=== PATIENT | male | born 1955 | race Caucasian/White ===

== ENCOUNTER 2024-01-27 06:30 | Day surgery (SDC) | payer BC ==
[~2024-01-27 06:30] MED LIST: Sodium Chloride 0.9% 10 ML Syringe FLUSH PRN; Sodium Chloride 0.9% 10 ML Syringe FLUSH SCH
[2024-01-27] MEDS: Lactated Ringers 1,000 ML IV SCH (06:50)
[2024-01-27] MEDS ORDERED: Propofol 200 MG/20 ML SDV ONE ×2 (07:19→08:34)
[2024-01-27] MEDS ORDERED: Midazolam 1 MG/ML 2 ML SDV ONE (07:19)
[2024-01-27] MEDS ORDERED: ceFAZolin 2 GM Vial ONE (07:20)
[2024-01-27] MEDS ORDERED: Ondansetron 4 MG/2 ML SDV ONE (07:20)
[2024-01-27] MEDS: Acetaminophen 325 MG Tab PO SCH (07:28)
[2024-01-27] MEDS: Pregabalin 25 MG Cap PO SCH (07:29)
[2024-01-27] MEDS: oxyCODONE ER 10 MG TAB.ER PO SCH (07:29)
[2024-01-27] MEDS ORDERED: Phenylephrine 1% 10 MG/ML SDV ONE (08:08)
[2024-01-27] MEDS ORDERED: Ketamine 200 MG/20 ML MDV ONE (08:14)
[2024-01-27] MEDS ORDERED: Ropivacaine 0.5% 5 MG/ML 30 ML SDV ONE (08:39)
[2024-01-27] MEDS ORDERED: dexmedeTOMIDine HCl 200 MCG/2 ML SDV ONE (08:39)
[2024-01-27] MEDS: Morphine 8 MG, EPINEPHrine 0.3 MG, Cefuroxime 750 MG, Ketorolac 30 MG, Sodium Chloride ... PRN (09:16)
[2024-01-27] MEDS: VANCOmycin 1 GM SDV ONE (09:21)
[2024-01-27] MEDS: Tranexamic Acid 1,000 MG/10 ML Vial ONE (09:21)
[2024-01-27] MEDS: oxyCODONE 5 MG Tab PO PRN (12:39)
== END 2024-01-27 12:50 | disposition home or self-care (01) ==
LOC: JD.SDS 06:30
PROVIDERS: ATTEND Orthopaedic Surgery
DX: M17.11 Unilateral primary osteoarthritis, right knee (principal)
CPT/HCPCS: 0055T; 27447; 64447; 73560; 97116; 97161; A9270; C1776; J0171; J0690; J0697; J1885; J2250; J2272; J2371; J2405; J2704; J2795; J3490; J7120